=== PATIENT | female | born 1990 | race Caucasian/White ===

== ENCOUNTER 2017-10-31 16:31 | Emergency (ER) | payer SELFPAY ==
[2017-10-31 16:47] VITALS: BP 115/67
[2017-10-31] MEDS ORDERED: Tenofovir/Emtricitabine(*) TAB PO ONE ×2 (18:42→21:00)
[2017-10-31] MEDS ORDERED: Raltegravir* 400 MG TAB PO ONE ×2 (18:42→21:00)
[2017-10-31 19:35] LABS: ABS Basophils 0 10^3/ul (0-0.2); ABS Eosinophils 0.2 10^3/ul (0-0.6); ABS Lymphocytes 4.2 10^3/ul (1.0-4.8); ABS Neutrophils 3.9 10^3/ul (1.5-7.7); ABS Nucleated RBC 0 10^3/ul; Eosinophil % 2.4 % (0-6); Hematocrit 38 % (35-47); Lymphocyte % 44.9 % (25-47); Mean Corpuscular HGB Conc 34 g/dl (31-36); Mean Corpuscular Hemoglobin 31 pg (27-31); Mean Corpuscular Volume 91 fL (80-97); Mean Platelet Volume 7.4 um3 (7.4-10.4); Nucleated Red Blood Cells % 0.1; Platelet Count 370 10^3/ul (150-450); Red Cell Distribution Width 13 % (10.5-15); White Blood Count 9.4 10^3/ul (3.5-10.8)
[2017-10-31 19:46] LABS: EGFR Non-African American 68.6 (>60)
[2017-10-31 19:55] LABS: INR 1.03 (0.77-1.02)
--- NOTE | 2017-10-31 20:27 | ED ---
I, Julian Doty, scribed for Damián Dorman MD on 10/31/17 at 1927 . Re-Evaluation - Re-Evaluation First Eval Re-Evaluation Time: 20:20 Comment: Pt resting comfortably in bed. pt with no acute complaints. Pt given PEP due to recent exposure. Course/Dx - Course Course Of Treatment: pt with HIV and Hep B/C lab drawn. Will update pt with results on completion in 24 hours. - Diagnoses Provider Diagnoses: Patient exposure to body fluids Discharge - Sign-Out/Discharge Documenting (check all that apply): Receiving Sign-Out Receiving patient FROM: Fredi Davey - Pending labs, dx and disposition. - Discharge Plan Condition: Stable Disposition: HOME Prescriptions: Ondansetron ODT TAB* [Zofran 4 MG Odt TAB*] 4 mg PO Q8H PRN #30 tab.odt PRN Reason: Nausea/Vomiting Patient Education Materials: Body Substance Exposure (ED), Postexposure Prophylaxis (ED) Referrals: Non Staff,Doctor [Primary Care Provider] - Additional Instructions: WE WILL CONTACT IN 24 HOURS WITH THE RESULTS OF YOUR BODY FLUID EXPOSURE LAB RESULTS. YOU HAVE BEEN GIVEN BEEN GIVEN EXPOSURE VACCINES AND ANTIRETROVIRALS TO PREVENT ANY COMMUNICABLE DISEASES. - Billing Disposition and Condition Condition: STABLE Disposition: HOME The documentation as recorded by the Soren roach Sixian accurately reflects the service I personally performed and the decisions made by , Daimán Dorman MD.
[2017-10-31] MEDS ORDERED: Ondansetron ODT TAB* 4 MG ONE (21:03)
== END 2017-10-31 21:32 | disposition home or self-care (01) ==
LOC: ED 16:31
DX: Z77.21 Contact with and (suspected) exposure to potentially hazardous body fluids (principal)
CPT/HCPCS: 36415; 80053; 85025; 85610; 85730; 86703; 86706; 86803; 87340; 99283; A9270-GY

== ENCOUNTER 2018-12-08 07:27 | Day surgery (SDC) | payer OTHER ==
[~2018-12-08 07:27] MED LIST: Buffered Lidocaine 1% SYRIN* 1 ML/SYRINGE INTRADERM ONE; Dexamethasone TAB* 4 MG PO ONE; Famotidine IV* 10 MG/ML 2 ML (20 mg) IV ONE; Lactated Ringers 1000 ML Bag* 1,000 ML IV SCH; Ondansetron TAB* 4 MG PO ONE
[2018-12-08] MEDS ORDERED: HYDROmorphone INJ1* 1 MG/ML SYRINGE IV PRN (07:49)
[2018-12-08] MEDS ORDERED: fentaNYL* 50 MCG/ML 2 ML VIAL (100 MCG VIAL) IV PRN (07:49)
[2018-12-08] MEDS ORDERED: Scopolamine 1.5 mg* PATCH TRANSDERM PRN (07:49)
[2018-12-08] MEDS ORDERED: DiMENhydriNATE IV* 50 MG/ML VIAL IV PUSH PRN (07:49)
[2018-12-08] MEDS ORDERED: Naloxone* 0.4 MG/ML 1 ML VIAL IV PRN (07:49)
[2018-12-08] MEDS ORDERED: PROCHLORPERAZINE INJ 5 MG/ML 2 ML VIAL IV PRN (07:49)
[2018-12-08] MEDS ORDERED: oxyCODONE/Acetamin 5/325 MG* TAB PO PRN (07:49)
[2018-12-08] MEDS ORDERED: Dexamethasone TAB* 4 MG ONE (07:50)
[2018-12-08] MEDS ORDERED: ceFAZolin 2 GM PREMIX in ORs 2 GM/50 ML BAG IVPB ONE (07:50)
[2018-12-08] MEDS ORDERED: Ondansetron ODT TAB* 4 MG ONE (07:50)
[2018-12-08] MEDS ORDERED: Buffered Lidocaine 1% SYRIN* 1 ML/SYRINGE INTRADERM ONE (07:50)
[2018-12-08] MEDS ORDERED: Famotidine IV* 10 MG/ML 2 ML (20 mg) ONE (07:50)
[2018-12-08] MEDS ORDERED: fentaNYL* 50 MCG/ML 2 ML VIAL (100 MCG VIAL) ONE (08:07)
[2018-12-08] MEDS ORDERED: Midazolam* 1 MG/ML 5 ML VIAL (5 MG) ONE (08:07)
[2018-12-08] MEDS ORDERED: KETAMINE HCL* 50 MG/ML 10 ML VIAL ONE (08:07)
[2018-12-08] MEDS ORDERED: Bupivacaine 0.5%* 50 ML VIAL ONE (09:27)
[2018-12-08] MEDS ORDERED: PROCHLORPERAZINE INJ 5 MG/ML 2 ML VIAL ONE (09:51)
[2018-12-08] MEDS ORDERED: Lidocaine 2% PF * 5 ML VIAL ONE (09:51)
[2018-12-08] MEDS ORDERED: Ketorolac INJ* 30 MG/ML 1 ML VIAL ONE (09:51)
[2018-12-08] MEDS ORDERED: Propofol* 10 MG/ML 20 ML BTL ONE (09:51)
[2018-12-08 11:33] VITALS: BP 120/79
--- NOTE | 2018-12-08 13:09 | OP ---
Operative Report - Blank - Operative Report Date of Operation: 12/08/18 Note: PATIENT: Italia Padron DATE OF : 1990 DATE OF SURGERY: 12/08/2018 SURGEON: Roberto Alfonso MD HUMAN SERVICES INSTRUCTOR: JENNA Alvarez, whos assistance was necessary for positioning, retraction, help with instrumentation, and closure. ANESTHESIOLOGIST: Dr. Jose La PREOPERATIVE DIAGNOSIS: Right foot painful accessory navicular POSTOPERATIVE DIAGNOSIS: Right foot painful accessory navicular OPERATION: Right foot Kidner procedure with excision of accessory navicular with advancement of the posterior tibial tendon ANESTHESIA: General IMPLANTS: Arthrex Fibertak TOURNIQUET TIME: Less than one hour, with a well-padded thigh tourniquet at 250 mmHg SPECIMENS: Accessory navicular bone to pathology ESTIMATED BLOOD LOSS: Minimal COMPLICATIONS: none STATUS: Stable from the operating room to the recovery room and then home. INDICATIONS FOR PROCEDURE: Italia has a painful right accessory navicular bone and has tried extensive nonoperative treatment without benefit. Both operative and non operative treatment alternatives were reviewed. Further, the nature and risks of surgery were reviewed in careful detail, in the office as well as the pre-operative holding area. Our discussions regarding the risks of surgery included, but were not limited to, infection, wound problems, nerve injury, neuroma, RSD, persistent symptoms, blood clot, failure of the surgery, tendon rupture, persistent symptoms, and even the remote chance of catastrophic complication. DESCRIPTION OF PROCEDURE: The patient was seen in the preoperative holding unit and informed written consent was obtained. The appropriate extremity was marked. The patient was then brought to the operating room and carefully positioned on the operating room table. Anesthesia was induced. All bony prominences were padded with great care. A well-padded thigh tourniquet was placed. A chlorhexidine based pre- scrub was performed followed by a chloraprep prep and drape in standard sterile fashion. A surgical safety pause was then conducted in which we confirmed the appropriate patient, extremity, planned procedure, availability of equipment, indication and administration of prophylactic antibiotics, and DVT prophylaxis in the form of a compression boot on the non-surgical extremity. We began with Esmarch exsanguination of the limb and inflated the tourniquet. A medial longitudinal incision was made centered at the medial prominence of the navicular. Careful blunt dissection was taken down to the layer of the posterior tibial tendon and periosteum. This layer was defined. An incision was made at the superior edge of the posterior tibial tendon and this was reflected in a subperiosteal manner plantarly. The periosteum superiorly was also reflected in a subperiosteal manner so as to expose the entire medial navicular. The accessory navicular was identified. A 15 blade scalpel was used to excise the accessory navicular. A small straight osteotome was then used to excise the prominent medial aspect of the remaining navicular as well. The edges were smoothed with a Rongeur and then the exposed cancellous bed was smoothed with a rasp. No prominence was felt directly and also the soft tissues were provisionally tacked closed, and no prominence was felt on the skin. Fluoroscopy was then used to confirm adequate resection. Copious irrigation was then performed. An Arthrex suturetak was then placed under fluoroscopic guidance into the navicular. This had excellent purchase and I was able to lift the foot off the bed by pulling on the sutures. These sutures were then placed through the posterior tibial tendon in a horizontal mattress fashion so as to advance the posterior tibial tendon to the new medial edge of the navicular bone. A 0 Vicryl suture was then used to perform a ktgj-tr-endy repair of the periosteum and posterior tibial tendon. At this point, we irrigated copiously and then closed in layers meticulously utilizing 3-0 Monocryl and 3-0 Nylon for the skin. A sterile dressing was then applied followed by a splint with the ankle in neutral position. The patient was then awakened from anesthesia and transferred to the recovery room in stable condition. There were no complications. All needle and sponge counts were correct at the end of the case. ATTESTATION: I attest I was present and scrubbed and performed the critical portions of the procedure myself. POSTOPERATIVE PLAN: Follow up will be in 2 weeks for likely suture removal and transition to a [id number] short leg cast. We will plan on 6 weeks of [id number] and immobilization.
[2018-12-11] MEDS ORDERED: Scopolamine PATCH Remove* 1 NOTE MISC PATCH OFF ONE (07:50)
== END 2018-12-08 11:38 | disposition home or self-care (01) ==
LOC: OR 07:27
PROVIDERS: ATTEND Orthopaedic Surgery
DX: M76.821 Posterior tibial tendinitis, right leg (principal); Q79.8 Other congenital malformations of musculoskeletal system; W10.9XXA Fall (on) (from) unspecified stairs and steps, initial encounter; Y92.9 Unspecified place or not applicable; Y99.0 Civilian activity done for income or pay
CPT/HCPCS: 76000; 81025; 88304; 88311; A9270-GY; C1713; J0690; J0780; J1885; J2250; J2704; J3010; J3490; J8540